=== PATIENT | male | born 1960 | race Caucasian/White ===

== ENCOUNTER 2017-06-14 11:09 | Observation (INO) | payer OTHER ==
[~2017-06-14] VITALS: Ht 177.8 cm; Wt 106.6 kg
[~2017-06-14 11:09] MED LIST: ACET65TA OR; COLA100C2 OR; MOM OR; OMEP20TA7 OR; PAXI20TA OR; TOPR100T OR; VICO5TAB OR
[2017-06-14] MEDS ORDERED: ATOR80TA59 (11:25)
[2017-06-14] MEDS ORDERED: CLOP75TA2 (11:25)
[2017-06-14] MEDS ORDERED: CARV25TA (11:25)
[2017-06-14] MEDS ORDERED: LISI10TA4 (11:25)
[2017-06-14] MEDS ORDERED: BAYE81TA7 (11:25)
--- NOTE | 2017-06-14 11:44 | REP ---
SINGLE VIEW CHEST: AP portable view of the chest is performed. Comparison 08/09/2015. Heart is not significantly enlarged. Mediastinal silhouette is unremarkable and unchanged. There is mild bibasilar fibroatelectatic change without evidence of acute infiltrate. IMPRESSION: No evidence of acute pulmonary disease. Signed by Ganesh June MD 06/14/2017 05:34 P
[2017-06-14] MEDS ORDERED: ACETAMINOPHEN TAB 650MG DOSE (2X325MG) PO ONE (11:45)
[2017-06-14 11:48] LABS: BASO % 0.3 % (0.0-1.0); EOS % 0.6 % (0.0-3.0); IMMATURE GRANULOCYTE % 0.3 % (0-0); LYMPH # 1.6 10^3/uL (1.5-4.5); LYMPH % 22.1 % (24.0-44.0); MEAN CORPUSCULAR HEMOGLOBIN 33.4 pg (27.0-33.0); MEAN CORPUSCULAR HGB CONC 35.2 g/dl (32.0-36.5); MEAN CORPUSCULAR VOLUME 94.8 fl (80.0-96.0); MONO # 0.4 10^3/uL (0.0-0.8); MONO % 5.9 % (0.0-5.0); NEUTROPHILS # 5.1 10^3/uL (1.8-7.7); NEUTROPHILS % 70.8 % (36.0-66.0); PLATELET COUNT, AUTOMATED 227 10^3/uL (150-450); RED CELL DISTRIBUTION WIDTH 13.2 % (11.5-14.5); WHITE BLOOD COUNT 7.2 10^3/uL (4.0-10.0)
[2017-06-14 12:00] LABS: INR 1.04
[2017-06-14 12:12] LABS: ALBUMIN 3.8 GM/DL (3.2-5.2); ALBUMIN/GLOBULIN RATIO 1.15 (1.00-1.93); ALKALINE PHOSPHATASE 70 U/L (45-117); ALT/SGPT 32 U/L (12-78); ANION GAP 7 MEQ/L (8-16); AST/SGOT 18 U/L (15-37); BILIRUBIN,DIRECT 0.2 MG/DL (0.0-0.2); BILIRUBIN,TOTAL 0.8 MG/DL (0.2-1.0); BLOOD UREA NITROGEN 19 MG/DL (7-18); CALCIUM LEVEL 8.7 MG/DL (8.5-10.1); CARBON DIOXIDE LEVEL 25 MEQ/L (21-32); CHLORIDE LEVEL 105 MEQ/L (98-107); CREATININE FOR GFR 0.92 MG/DL (0.70-1.30); GLOMERULAR FILTRATION RATE > 60.0 (>56); GLUCOSE, FASTING 154 MG/DL (70-105); POTASSIUM SERUM 3.9 MEQ/L (3.5-5.1); SODIUM LEVEL 137 MEQ/L (136-145); TOTAL PROTEIN 7.1 GM/DL (6.4-8.2)
[2017-06-14] MEDS ORDERED: NS 500 ML IV ONE (12:30)
[2017-06-14] MEDS ORDERED: PARO40TA2 PO (15:22)
[2017-06-14] MEDS ORDERED: ASPI1TAB15 PO (15:22)
[2017-06-14] MEDS ORDERED: PANT40TA2 PO (15:22)
[2017-06-14] MEDS ORDERED: CARV25TA PO (15:22)
[2017-06-14] MEDS ORDERED: LISI10TA4 PO (15:22)
[2017-06-14] MEDS ORDERED: ATOR80TA59 PO (15:22)
[2017-06-14] MEDS ORDERED: PLAV1TAB2 PO (15:22)
[2017-06-14] MEDS ORDERED: ONDANSETRON 4MG/2ML VIAL (J2405) IV PRN (15:45)
[2017-06-14] MEDS ORDERED: LISINOPRIL 10 MG TAB PO ONE (15:45)
[2017-06-14] MEDS ORDERED: ACETAMINOPHEN TAB 650MG DOSE (2X325MG) PO PRN (15:45)
--- NOTE | 2017-06-14 16:06 | HPEPDOC ---
[facility] Medical History & Physical Date of Admission Jun 14, 2017 History and Physical PRIMARY CARE PROVIDER: Dr. Summers ATTENDING: Dr. Kaia Montenegro CHIEF COMPLAINT: Diaphoresis, near syncope HISTORY OF PRESENT ILLNESS: This is a 56 y/o with PMHx CAD s/p PCI, HTN, HLD, who presents with near syncope. He was also noted to have mild bradycardia from his BB. Denies CP/Palpitations. No N/V/Abd pain. Will be admitted and placed on telemetry with echo pending. PAST MEDICAL HISTORY: As per HPI PAST SURGICAL HISTORY: PCI x 2 SOCIAL HISTORY: Denies tobacco, alcohol, illicit drug use. 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 FAMILY HISTORY: Strong family history heart disease. Mother with CHF, brother of CO age 28. ALLERGIES: Please see below. REVIEW OF SYSTEMS: HEENT: Denies sore throat/headache CARDIOVASCULAR: Denies chest pain/palpitations RESPIRATORY: + shortness of breath. No cough GASTROINTESTINAL: denies nausea/vomiting GENITOURINARY: Denies dysuria/urinary urgency. MUSCULOSKELETAL: Denies myalgias/arthralgias NEUROLOGICAL: Denies any focal weakness HOME MEDICATIONS: Please see below. PHYSICAL EXAMINATION: Vitals: (see below) General: No acute distress, laying comfortably in bed. HEENT: Moist mucous membranes. Neck: No JVD or lymphadenopathy Cardiac: RRR, No murmurs Pulm: Diminished breath sounds at the bases b/l. No wheezing, rhonchi Abd: NT/ND + BS Ext: No edema or cyanosis LABORATORY DATA: See below. IMAGING: MICROBIOLOGY: Please see below. ASSESSMENT/PLAN: 1. Near-syncope- likely vasovagal however will monitor on telemetry. We'll rule out bradycardia/tachycardia/arrhythmia as a cause. Echocardiogram pending. Cardiac enzymes negative 2. Symptoms have resolved. Patient is slightly bradycardic and is on Coreg. Dose of Coreg has been decreased. Dr. Serrato has been called by the ED. 2. History of CAD status post PCI 2 when the patient had an CO in 2014. On aspirin, statin, beta jt, Plavix. 3. Hypertension- continue home meds. Received in dose of Lasix today. 4. Azotemia- likely from dehydration. Started IV fluids. 5. Hyperlipidemia- on statin DVT prophylaxis- SCDs. Pt will be followed by Dr. Kaia He starting 06/15/17 at 7am. Vital Signs Vital Signs Date Time Temp Pulse Resp B/P (MAP) Pulse Ox O2 Delivery O2 Flow Rate FiO2 06/14/17 13:01 48 16 154/68 (96) 91 Room Air 06/14/17 11:22 97.9 Laboratory Data Labs 24H Laboratory Tests 2 06/14/17 11:31: Immature Granulocyte % (Auto) 0.3H, White Blood Count 7.2, Red Blood Count 4.61 , Hemoglobin 15.4, Hematocrit 43.7, Mean Corpuscular Volume 94.8, Mean Corpuscular Hemoglobin 33.4H, Mean Corpuscular Hemoglobin Concent 35.2, Red Cell Distribution Width 13.2, Platelet Count 227, Neutrophils (%) (Auto) 70.8H, Lymphocytes (%) (Auto) 22.1L, Monocytes (%) (Auto) 5.9H, Eosinophils (%) (Auto) 0.6, Basophils (%) (Auto) 0.3, Neutrophils # (Auto) 5.1, Lymphocytes # (Auto) 1.6, Monocytes # (Auto) 0.4, Eosinophils # (Auto) 0.0, Basophils # (Auto) 0.0, Immature Granulocyte # (Auto) 0.0, Nucleated Red Blood Cells % (auto) 0.0, Prothrombin Time 13.7, Prothromb Time International Ratio 1.04, Anion Gap 7L, Glomerular Filtration Rate > 60.0, Calcium Level 8.7, Aspartate Amino Transf ( AST/SGOT) 18, Alanine Aminotransferase (ALT/SGPT) 32, Alkaline Phosphatase 70, Total Bilirubin 0.8, Direct Bilirubin 0.2, Total Creatine Kinase 138, Creatine Kinase MB 3.2, Creatine Kinase MB Relative Index 2.31, Troponin I < 0.02, NT-Pro -B-Type Natriuretic Peptide 441H, Total Protein 7.1, Albumin 3.8, Albumin/ Globulin Ratio 1.15, Lipase 89, Thyroid Stimulating Hormone (TSH) 1.150 06/14/17 13:38: Total Creatine Kinase 124, Creatine Kinase MB 3.2, Creatine Kinase MB Relative Index 2.58, Troponin I < 0.02 06/14/17 14:52: Magnesium Level 2.1 CBC/BMP Laboratory Tests 06/14/17 11:31 Red Blood Count 4.61, Mean Corpuscular Volume 94.8, Mean Corpuscular Hemoglobin 33.4 H, Mean Corpuscular Hemoglobin Concent 35.2, Red Cell Distribution Width 13.2, Neutrophils (%) (Auto) 70.8 H, Lymphocytes (%) (Auto) 22.1 L, Monocytes (% ) (Auto) 5.9 H, Eosinophils (%) (Auto) 0.6, Basophils (%) (Auto) 0.3, Neutrophils # (Auto) 5.1, Lymphocytes # (Auto) 1.6, Monocytes # (Auto) 0.4, Eosinophils # (Auto) 0.0, Basophils # (Auto) 0.0 Home Medications Scheduled Aspirin (Aspirin) 81 Mg Tab, 81 MG PO DAILY Atorvastatin Calcium (Atorvastatin Calcium) 80 Mg Tab, 80 MG PO DAILY Carvedilol (Carvedilol) 12.5 Mg Tab, 12.5 MG PO BID Clopidogrel Bisulfate (Plavix) 75 Mg Tab, 75 MG PO DAILY Lisinopril (Lisinopril) 10 Mg Tab, 10 MG PO DAILY Pantoprazole Sodium (Pantoprazole Sodium) 40 Mg Tab, 40 MG PO DAILY Paroxetine (Paroxetine HCl) 40 Mg Tab, 40 MG PO DAILY Allergies Coded Allergies: Codeine (Verified Adverse Reaction, Mild, NAUSEA, 12/03/12) No Known Allergies (Verified , 04/11/06) HELENA ZUNIGA MD Jun 14, 2017 16:06
[2017-06-14 17:00] VITALS: BP 169/100
[2017-06-14 20:00] VITALS: BP 135/81
[2017-06-14] MEDS: CARVedilol 12.5 MG TAB PO SCH (20:47)
[2017-06-15] VITALS (10 sets, daily range): BP systolic 114–164; BP diastolic 75–87
[2017-06-15 04:53] LABS: MEAN CORPUSCULAR HEMOGLOBIN 32.9 pg (27.0-33.0); MEAN CORPUSCULAR HGB CONC 34.3 g/dl (32.0-36.5); MEAN CORPUSCULAR VOLUME 95.9 fl (80.0-96.0); PLATELET COUNT, AUTOMATED 209 10^3/uL (150-450); RED CELL DISTRIBUTION WIDTH 13.3 % (11.5-14.5); WHITE BLOOD COUNT 5.6 10^3/uL (4.0-10.0)
[2017-06-15 05:34] LABS: ANION GAP 5 MEQ/L (8-16); BLOOD UREA NITROGEN 18 MG/DL (7-18); CARBON DIOXIDE LEVEL 27 MEQ/L (21-32); CHLORIDE LEVEL 109 MEQ/L (98-107); CREATININE FOR GFR 1.03 MG/DL (0.70-1.30); GLOMERULAR FILTRATION RATE > 60.0 (>56); GLUCOSE, FASTING 102 MG/DL (70-105); MAGNESIUM LEVEL 2.1 MG/DL (1.8-2.4); POTASSIUM SERUM 4.5 MEQ/L (3.5-5.1); SODIUM LEVEL 141 MEQ/L (136-145)
--- NOTE | 2017-06-15 06:01 | ECGEPIP ---
Stationary ECG Study [facility] - ED Test Date: 2017-06-14 Pat Name: FELI PUTNAM Department: Room: - Gender: M [employer]: mariana : 1960 Requested By: Charla Venegas Order Number: [id number] Reading MD: Iain Edmondson Measurements Intervals [place] Rate: 51 P: 35 OK: 172 QRS: 23 QRSD: 99 T: 99 QT: 429 QTc: 397 Interpretive Statements SINUS BRADYCARDIA PRIOR ANTEROSEPTAL INFARCTION Electronically Signed On 06-15-2017 6:01:22 EDT by Iain Edmondson
[2017-06-15] MEDS: CLOPIDOGREL 75 MG TAB PO SCH (08:25)
[2017-06-15] MEDS: ATORVASTATIN 20 MG TAB PO SCH (08:25)
[2017-06-15] MEDS: PARoxetine 20 MG TAB PO SCH (08:25)
[2017-06-15] MEDS: PANTOPRAZOLE 40MG TAB (PROTONIX) PO SCH (08:25)
[2017-06-15] MEDS: LISINOPRIL 10 MG TAB PO SCH (08:25)
[2017-06-15] MEDS: CARVedilol 12.5 MG TAB PO SCH ×2 (08:26→20:26)
[2017-06-15] MEDS: ASPIRIN 81 MG ENTERIC TAB PO SCH (08:26)
--- NOTE | 2017-06-15 15:34 | IPN ---
DATE: 06/15/2017 Patient admitted yesterday with near-syncopal episodes and bradyarrhythmia. Denies any chest pain, pressure, or discomfort, fevers, or chills. No further episodes of the hospital. VITAL SIGNS: Temperature 97.8, pulse 58, respirations 17, blood pressure 118/75, pulse oximetry 98% on room air. LABORATORY DATA: WBC 5.6, hemoglobin and hematocrit 15.3/44.6, platelets 209. Chemistry: Sodium 141, potassium 4.5, chloride 109, bicarbonate 27, BUN 18, creatinine 1.03. Cardiac enzymes negative times three. PHYSICAL EXAMINATION: GENERAL: Patient alert and oriented times three in no acute distress. HEENT: Normocephalic, atraumatic. PULMONARY: Bilaterally clear to auscultation. CARDIAC: Regular rate and rhythm. Normal S1, S2. ABDOMEN: Soft and nontender. Positive bowel sounds. EXTREMITIES: No clubbing, cyanosis, or edema. NEUROLOGIC: No focal deficits. ASSESSMENT AND PLAN: This is a 56-year-old male patient with underlying medical history of coronary artery disease with percutaneous coronary intervention (PCI) times two, hypertension, dyslipidemia, presented with a near-syncopal episode with diaphoresis. Was found to be mildly bradycardic. 1. Near-syncopal episode, likely vasovagal. Mild bradycardic on EKGs. Patient's Coreg has been reduced. Cardiac enzymes negative times three. Cardiology team has been informed. Will monitor the patient on telemetry for 2 nights prior to discharge. 2. History of coronary artery disease with PCI times two. Cardiac enzymes negative times three. Continue beta blockers at reduced dose, aspirin, statin, Plavix. Last myocardial infarction (CO) 2014. 3. Hypertension. Continue home medication. Dosage of beta jt has been reduced. Continue Coreg, lisinopril. 4. Depression. Continue Paxil. 5. Azotemia. Intravenous (IV) fluids have been given. 6. Dyslipidemia. Continue statin. 7. Deep vein thrombosis (DVT) prophylaxis. Sequential compression devices and early ambulation.
--- NOTE | 2017-06-15 22:21 | IPNPDOC ---
Text Note Date of Service The patient was seen on 06/15/17. NOTE Evening resident and attending were notified that patient was orthostatic positive. Chart was reviewed. 500 cc NS bolus ordered for patient. Continue to monitor BP closely. Will repeat orthostatics after bolus given. Patient has been discussed with attending Dr. Collier. GME ATTESTATION My preceptor for this patient encounter was physically present in the building during the encounter and was fully available. As needed, all aspects of the patient interview, examination, medical decision making process, and medical care plan development were reviewed and approved by the preceptor. Preceptor is aware and concurs with the plan as stated in the body of this note and will attest to such by his/her cosignature. VS,Fishbone, I+O VS, Fishbone, I+O Laboratory Tests 06/15/17 04:31 Red Blood Count 4.65, Mean Corpuscular Volume 95.9, Mean Corpuscular Hemoglobin 32.9, Mean Corpuscular Hemoglobin Concent 34.3, Red Cell Distribution Width 13.3 , Calcium Level 9.0 Vital Signs Date Time Temp Pulse Resp B/P (MAP) Pulse Ox O2 Delivery O2 Flow Rate FiO2 06/15/17 20:26 53 121/70 06/15/17 18:00 98.5 18 98 Room Air I&O- Last 24 Hours up to 6 AM 06/16/17 06:00 Intake Total 0 ml Output Total 150 ml Balance -150 ml GILBERTO KRISHNAMURTHY DO Jun 15, 2017 22:21
[2017-06-15] MEDS ORDERED: SODIUM CHLORIDE 0.9% 1000 ML IV ONE (22:30)
[2017-06-16 01:00] VITALS: BP_SYST 134; BP_SYST 137; BP_SYST 145; BP_DIAS 87; BP_DIAS 92; BP_DIAS 97
[2017-06-16 02:00] VITALS: BP 137/92
[2017-06-16 06:00] VITALS: BP 137/92
[2017-06-16 06:06] LABS: MEAN CORPUSCULAR HEMOGLOBIN 33.4 pg (27.0-33.0); MEAN CORPUSCULAR HGB CONC 35.3 g/dl (32.0-36.5); MEAN CORPUSCULAR VOLUME 94.6 fl (80.0-96.0); PLATELET COUNT, AUTOMATED 188 10^3/uL (150-450); RED CELL DISTRIBUTION WIDTH 13.2 % (11.5-14.5)
[2017-06-16 06:29] LABS: ANION GAP 7 MEQ/L (8-16); BLOOD UREA NITROGEN 21 MG/DL (7-18); CALCIUM LEVEL 8.6 MG/DL (8.5-10.1); CARBON DIOXIDE LEVEL 26 MEQ/L (21-32); CHLORIDE LEVEL 108 MEQ/L (98-107); CREATININE FOR GFR 0.83 MG/DL (0.70-1.30); GLOMERULAR FILTRATION RATE > 60.0 (>56); GLUCOSE, FASTING 103 MG/DL (70-105); MAGNESIUM LEVEL 1.9 MG/DL (1.8-2.4); SODIUM LEVEL 141 MEQ/L (136-145)
[2017-06-16] MEDS ORDERED: CARV12.5 PO (08:41)
[2017-06-16] MEDS: PARoxetine 20 MG TAB PO SCH (09:14)
[2017-06-16] MEDS: CLOPIDOGREL 75 MG TAB PO SCH (09:14)
[2017-06-16] MEDS: PANTOPRAZOLE 40MG TAB (PROTONIX) PO SCH (09:14)
[2017-06-16] MEDS: ASPIRIN 81 MG ENTERIC TAB PO SCH (09:14)
[2017-06-16] MEDS: ATORVASTATIN 20 MG TAB PO SCH (09:14)
[2017-06-16 09:15] VITALS: BP 149/83
[2017-06-16] MEDS: CARVedilol 12.5 MG TAB PO SCH (09:15)
[2017-06-16] MEDS: LISINOPRIL 10 MG TAB PO SCH (09:15)
[2017-06-16 10:00] VITALS: BP 143/84
[2017-06-16 14:00] VITALS: BP 139/83
--- NOTE | 2017-06-16 17:37 | DSES ---
DATE OF ADMISSION: 06/14/2017 DATE OF DISCHARGE: 06/16/2017 PRIMARY CARE PROVIDER: Dr. Summers GRADUATE TEACHING ASSISTANT: Dr. Knight and Dr. Serrato FINAL DIAGNOSES: 1. Near-syncope episode with vasovagal and bradyarrhythmia. 2. History of coronary artery disease. 3. Hypertension. 4. Depression. 5. Azotemia. 6. Dyslipidemia. HISTORY OF PRESENT ILLNESS: This is a 56-year-old male patient with underlying medical history of coronary artery disease with stent times two, hypertension, dyslipidemia. Works at [employer]. Had an episode where patient felt diaphoretic, almost passed out, and was brought to the emergency room. In the emergency room patient was found to be bradycardic down to 46 and 48. Subsequently request was then made for the patient to be admitted. HOSPITAL COURSE: Cardiac enzymes were done. Intravenous (IV) fluids were given to the patient for prerenal azotemia. Orthostatic vital signs were done. Initially mildly positive. After IV fluids, patient's orthostatics became negative. The patient's beta jt has been reduced. Case was discussed with cardiology, patient's beta jt reduced, and patient's heart rate subsequently much improved. Patient currently is comfortable in no acute distress. Passed home safety evaluation. Ready for discharge for further care of outpatient. Telemetry has been reviewed. PHYSICAL EXAMINATION: VITAL SIGNS: Temperature 98.3, pulse 60, respirations 18, blood pressure 143/84, pulse oximetry 93% on room air. GENERAL: Patient alert and oriented times three in no acute distress HEENT: Normocephalic, atraumatic. PULMONARY: Bilaterally clear to auscultation. CARDIAC: Regular rate and rhythm. Normal S1, S2. ABDOMEN: Soft, nontender. Positive bowel sounds. EXTREMITIES: No clubbing, cyanosis, or edema. LABORATORY DATA: WBC 5, hemoglobin and hematocrit 14.9/42.2, platelets 188. Chemistry: Sodium 141, potassium 4, chloride 108, bicarbonate 26, BUN 21, creatinine 0.8. Cardiac enzymes negative times three. DISCHARGE MEDICATIONS: - Coreg is reduced to 12.5 mg by mouth twice a day - aspirin 81 mg by mouth daily - Lipitor 80 mg by mouth daily - Plavix 75 mg by mouth daily - lisinopril 10 mg by mouth daily - Protonix 40 mg by mouth daily - Paxil 40 mg by mouth daily DISCHARGE INSTRUCTIONS: Patient is instructed to followup with cardiology next week. Patient already has an appointment. Followup with primary care provider in 7 days. Monitor blood pressure as outpatient. Oral hydration. Return to hospital if symptoms return.
--- NOTE | 2017-06-17 09:17 | ECHO ---
DATE OF PROCEDURE: 06/16/2017 REFERRING PHYSICIAN: Dr. Montenegro and Dr. Faraz Talley. The study was performed on 06/16/2017 for indication of syncope, shortness of breath and chest pain. Patient has a history of myocardial infarction. The patient measures 70 inches and weighs 234 pounds. DIMENSIONS: IVS: 1.3 LV: 6.3 LVPW: 1.3 LA: 4.7 Aorta: 3.4 Ascending aorta: 3.7 RV: 3.3 LV systolic: 3.6 IVC: 1.8 FINDINGS: The study is of fair technical quality. Left ventricle is mildly dilated. There is wall motion abnormality involving distal septum and apex. These segments are essentially akinetic. Remaining LV segments appear to have normal contractility. Overall left ventricular ejection fraction (LVEF) is estimated around 50-55%. The right ventricle appears normal. Left atrium is at least moderately enlarged. Right atrium is normal. Aortic, mitral and tricuspid valve appear normal. Pulmonic valve was relatively poorly visualized but also appears normal. No pericardial effusion is noted. Inferior vena cava is normal size. Aortic root is normal size. Aortic arch and abdominal aorta were not well seen. Doppler interrogation of aortic and mitral valve reveal no stenosis or insufficiency. There is trace tricuspid insufficiency, but unfortunately quality of TR jet was not sufficient to adequately estimate pulmonary artery pressure. No pulmonic insufficiency was seen. Mitral inflow pattern and tissue Doppler imaging of mitral annulus reveal grade 1 diastolic dysfunction. CONCLUSION: 1. Study is of fair technical quality. 2. Dilated left ventricle with mild left ventricular hypertrophy. Septal wall motion abnormality involving distal septum and apex and overall ejection fraction estimated around 50-55%. 3. Normal right ventricle. 4. Grade 1 diastolic dysfunction. 5. No significant valvular disease. 6. Normal central venous pressure. 7. Unable to estimate pulmonary artery pressure but no signs to suggest pulmonary hypertension. COMMENT: Subacute bacterial endocarditis (SBE) prophylaxis is not recommended. The study is consistent with hypertensive and ischemic heart disease.
== END 2017-06-16 14:50 | disposition home or self-care (01) ==
LOC: M ED 11:09 → EDBD 11:09 → M ED INP 15:37 → M ICU 16:56 → M MSPAV 06-15 15:13
PROVIDERS: ADMIT Internal Medicine; ATTEND Hospitalist
DX: R55 Syncope and collapse (principal); R00.1 Bradycardia, unspecified; I25.10 Atherosclerotic heart disease of native coronary artery without angina pectoris; I10 Essential (primary) hypertension; Z79.899 Other long term (current) drug therapy; F32.9 Major depressive disorder, single episode, unspecified; N19 Unspecified kidney failure; E78.5 Hyperlipidemia, unspecified; Z98.61 Coronary angioplasty status; Z79.02 Long term (current) use of antithrombotics/antiplatelets

== ENCOUNTER 2017-11-16 13:53 | Emergency (ER) | payer OTHER ==
[2017-11-16] MEDS ORDERED: ISOVUE-370 76% 100ML VIAL (Q9967) As Ordered (16:02)
[2017-11-16] MEDS: METHOCARBAMOL 500 MG TAB PO (16:45)
== END 2017-11-16 17:16 | disposition home or self-care (01) ==
LOC: M ED 13:53
DX: S39.92XA Unspecified injury of lower back, initial encounter (principal); W18.30XA Fall on same level, unspecified, initial encounter; Y92.59 Other trade areas as the place of occurrence of the external cause; Y93.89 Activity, other specified; Y99.0 Civilian activity done for income or pay; I25.10 Atherosclerotic heart disease of native coronary artery without angina pectoris; I10 Essential (primary) hypertension; E78.5 Hyperlipidemia, unspecified; K21.9 Gastro-esophageal reflux disease without esophagitis; Z79.899 Other long term (current) drug therapy; Z79.01 Long term (current) use of anticoagulants; Z79.82 Long term (current) use of aspirin; Z88.5 Allergy status to narcotic agent; Z95.5 Presence of coronary angioplasty implant and graft
CPT/HCPCS: Q9967

== ENCOUNTER → 2017-12-06 | Outpatient (CLI) | payer OTHER ==
[2017-12-06 13:26] LABS: BASO % 0.5 % (0.0-1.0); EOS # 0.1 10^3/uL (0.0-0.50); EOS % 1.8 % (0.0-3.0); HEMATOCRIT 44.7 % (42.0-52.0); HEMOGLOBIN 15.6 g/dl (13.5-17.5); IMMATURE GRANULOCYTE % 0.5 % (0-3.0); LYMPH # 2.1 10^3/uL (1.5-4.5); LYMPH % 34.2 % (24.0-44.0); MEAN CORPUSCULAR HEMOGLOBIN 33.1 pg (27.0-33.0); MEAN CORPUSCULAR HGB CONC 34.9 g/dl (32.0-36.5); MEAN CORPUSCULAR VOLUME 94.9 fl (80.0-96.0); MONO # 0.5 10^3/uL (0.0-0.8); MONO % 7.7 % (0.0-5.0); NEUTROPHILS # 3.4 10^3/uL (1.8-7.7); NEUTROPHILS % 55.3 % (36.0-66.0); PLATELET COUNT, AUTOMATED 237 10^3/uL (150-450); RED BLOOD COUNT 4.71 10^6/uL (4.30-6.10); RED CELL DISTRIBUTION WIDTH 13.4 % (11.5-14.5); WHITE BLOOD COUNT 6.2 10^3/uL (4.0-10.0)
[2017-12-06 13:58] LABS: ANION GAP 6 MEQ/L (8-16); BLOOD UREA NITROGEN 21 MG/DL (7-18); CALCIUM LEVEL 8.7 MG/DL (8.5-10.1); CARBON DIOXIDE LEVEL 30 MEQ/L (21-32); CHLORIDE LEVEL 106 MEQ/L (98-107); CREATININE FOR GFR 0.94 MG/DL (0.70-1.30); GLOMERULAR FILTRATION RATE > 60.0 (>56); GLUCOSE, FASTING 116 MG/DL (70-100); POTASSIUM SERUM 5.1 MEQ/L (3.5-5.1); SODIUM LEVEL 142 MEQ/L (136-145)
== END ==
LOC: M SMT 11:35
DX: I10 Essential (primary) hypertension (principal)
CPT/HCPCS: 80048

== ENCOUNTER → 2019-07-02 | Outpatient (REF) | payer OTHER ==
[~2019-07-02] MED LIST changes: +ASPI1TAB15 PO; +ATOR80TA59; +ATOR80TA59 PO; +BAYE81TA7; +CARV12.5 PO; +CARV25TA; +CARV25TA PO; +CLOP75TA2; +LISI10TA4; +LISI10TA4 PO; +METO-745 OR; +PANT40TA3 PO; +PARO40TA2 PO; +PLAV1TAB2 PO; +ROBA500T PO; -TOPR100T OR
[2019-07-02 12:06] LABS: BASO % 0.4 % (0.0-1.0); EOS # 0.1 10^3/uL (0.0-0.5); EOS % 2.5 % (0.0-3.0); HEMATOCRIT 44.6 % (42.0-52.0); LYMPH # 2.1 10^3/uL (1.5-5.0); LYMPH % 37.5 % (24.0-44.0); MEAN CORPUSCULAR HEMOGLOBIN 33.2 pg (27.0-33.0); MEAN CORPUSCULAR HGB CONC 33.6 g/dl (32.0-36.5); MEAN CORPUSCULAR VOLUME 98.7 fl (80.0-96.0); MONO # 0.4 10^3/uL (0.0-0.8); MONO % 7.7 % (0.0-5.0); NEUTROPHILS # 2.9 10^3/uL (1.5-8.5); NEUTROPHILS % 51.5 % (36.0-66.0); PLATELET COUNT, AUTOMATED 206 10^3/uL (150-450); RED BLOOD COUNT 4.52 10^6/uL (4.30-6.10); WHITE BLOOD COUNT 5.6 10^3/uL (4.0-10.0)
[2019-07-02 12:34] LABS: ALBUMIN 3.7 GM/DL (3.2-5.2); ALT/SGPT 28 U/L (12-78); BILIRUBIN,TOTAL 0.4 MG/DL (0.2-1.0); BLOOD UREA NITROGEN 16 MG/DL (7-18); CALCIUM LEVEL 8.7 MG/DL (8.8-10.2); CARBON DIOXIDE LEVEL 30 MEQ/L (21-32); CHLORIDE LEVEL 106 MEQ/L (98-107); CHOLESTEROL LEVEL 153 MG/DL (<200); CHOLESTEROL RISK RATIO 4.135 (<5); CK-MB VALUE MASS 3.6 NG/ML (<3.6); CPK CREATINE PHOSPHOKINASE 157 U/L (39-308); CREATININE FOR GFR 0.85 MG/DL (0.70-1.30); FREE T4 0.98 NG/DL (0.76-1.46); GLOMERULAR FILTRATION RATE > 60.0 (>49); GLUCOSE, FASTING 234 MG/DL (70-100); HDL CHOLESTEROL 37 MG/DL (>40); LDL CHOLESTEROL 96 MG/DL (<100); MB/CK RELATIVE INDEX 2.29 (< OR =4); NON-HDL-C 116 MG/DL; POTASSIUM SERUM 4.1 MEQ/L (3.5-5.1); SODIUM LEVEL 141 MEQ/L (136-145); TOTAL PROTEIN 7.4 GM/DL (6.4-8.2); TRIGLYCERIDES LEVEL 102 MG/DL (<150); TROPONIN I < 0.02 NG/ML (< 0.10)
[2019-07-02 12:35] LABS: HEMOGLOBIN A1c 8.4 %
== END ==
LOC: M SFHCPLAZ 10:18
PROVIDERS: ATTEND Physician Assistant Medical
DX: Z12.5 Encounter for screening for malignant neoplasm of prostate (principal); E66.9 Obesity, unspecified; E78.5 Hyperlipidemia, unspecified; F41.1 Generalized anxiety disorder; I10 Essential (primary) hypertension; I25.119 Atherosclerotic heart disease of native coronary artery with unspecified angina pectoris
CPT/HCPCS: 36415; 80053; 80061; 82550; 82553; 83036; 84439; 84443; 84484; 85025; G0103

== ENCOUNTER → 2019-08-13 | Outpatient (REF) | payer OTHER ==
[2019-08-13 12:38] LABS: HEMOGLOBIN A1c 8.1 %
== END ==
LOC: M SFHCPLAZ 09:44
PROVIDERS: ATTEND Physician Assistant Medical
DX: E11.9 Type 2 diabetes mellitus without complications (principal)

== ENCOUNTER → 2020-01-28 | Outpatient (CLI) | payer OTHER ==
--- NOTE | 2020-01-28 15:14 | REPPI ---
REASON: Atraumatic pain. There are mild degenerative changes. There is no acute fracture. Electronically Signed by Mir Palencia DO 01/28/2020 03:23 P
--- NOTE | 2020-01-28 15:14 | REPPI ---
REASON: Arthritis. There are mild degenerative changes. There is no acute fracture. Electronically Signed by Mir Palencia DO 01/28/2020 03:23 P
== END ==
LOC: M PLAIMG 10:24
PROVIDERS: ATTEND Physician Assistant Medical
DX: M25.532 Pain in left wrist (principal)

== ENCOUNTER → 2020-01-28 | Outpatient (REF) | payer OTHER ==
[2020-01-28 12:56] LABS: BASO % 0.5 % (0.0-1.0); EOS # 0.1 10^3/uL (0.0-0.5); EOS % 1.6 % (0.0-3.0); HEMATOCRIT 43.2 % (42.0-52.0); HEMOGLOBIN 15.1 g/dl (13.5-17.5); LYMPH % 35.1 % (24.0-44.0); MEAN CORPUSCULAR HEMOGLOBIN 33.6 pg (27.0-33.0); MONO # 0.4 10^3/uL (0.0-0.8); MONO % 7.3 % (0.0-5.0); NEUTROPHILS # 3.1 10^3/uL (1.5-8.5); PLATELET COUNT, AUTOMATED 200 10^3/uL (150-450); WHITE BLOOD COUNT 5.6 10^3/uL (4.0-10.0)
[2020-01-28 13:10] LABS: ALBUMIN 3.8 GM/DL (3.2-5.2); ALT/SGPT 37 U/L (12-78); BILIRUBIN,TOTAL 0.5 MG/DL (0.2-1.0); BLOOD UREA NITROGEN 21 MG/DL (7-18); CALCIUM LEVEL 8.6 MG/DL (8.8-10.2); CARBON DIOXIDE LEVEL 30 MEQ/L (21-32); CHLORIDE LEVEL 106 MEQ/L (98-107); CHOLESTEROL LEVEL 159 MG/DL (<200); CHOLESTEROL RISK RATIO 3.975 (<5); CREATININE FOR GFR 0.92 MG/DL (0.70-1.30); FREE T4 1.01 NG/DL (0.76-1.46); GLOMERULAR FILTRATION RATE > 60.0 (>49); GLUCOSE, FASTING 143 MG/DL (70-100); HDL CHOLESTEROL 40 MG/DL (>40); LDL CHOLESTEROL 93 MG/DL (<100); NON-HDL-C 119 MG/DL; POTASSIUM SERUM 4.6 MEQ/L (3.5-5.1); SODIUM LEVEL 139 MEQ/L (136-145); THYROID STIMULATING HORMONE 0.969 uIU/ML (0.358-3.740); TRIGLYCERIDES LEVEL 130 MG/DL (<150)
[2020-01-28 14:11] LABS: HEMOGLOBIN A1c 7.5 %
== END ==
LOC: M SFHCPLAZ 10:24
PROVIDERS: ATTEND Physician Assistant Medical
DX: E78.5 Hyperlipidemia, unspecified (principal); E11.9 Type 2 diabetes mellitus without complications; F41.1 Generalized anxiety disorder; I10 Essential (primary) hypertension

== ENCOUNTER → 2020-04-30 | Outpatient (CLI) | payer OTHER ==
[~2020-04-30] MED LIST changes: +ASPI-546 PO; -ASPI1TAB15 PO; +ISOS30TA4 PO; +METF500T13 PO; +PANT40TA29 PO; -PANT40TA3 PO
== END ==
LOC: M LABSMTC 11:00
PROVIDERS: ATTEND Anesthesiology
DX: Z11.59 Encounter for screening for other viral diseases (principal)
CPT/HCPCS: C9803; U0003

== ENCOUNTER 2020-05-05 08:00 | Day surgery (SDC) | payer OTHER ==
[~2020-05-05] VITALS: Ht 177.8 cm; Wt 101.2 kg
[~2020-05-05 08:00] MED LIST changes: +LIDOCAINE 2% 100MG/5ML SDV (FOR ANES.) As Ordered ONE; +NS 1,000 ML IV ONE; +propofoL 200 MG/20 ML VIAL As Ordered ONE
[2020-05-05 09:24] VITALS: BP 166/88
--- NOTE | 2020-05-05 11:39 | ROOR ---
Patient Name: Omid Schmidt Procedure Date: 05/05/2020 8:35 AM Date of : 1960 Age: 59 Room: [facility] Gender: Male Note Status: Finalized Procedure: Total Colonoscopy to Cecum Indications: Screening for colorectal malignant neoplasm Providers: Devaughn Soria MD Referring MD: Cait VELIZ Requesting Provider: Medicines: Monitored Anesthesia Care Complications: No immediate complications. Procedure: Pre-Anesthesia Assessment: - The heart rate, respiratory rate, oxygen saturations, blood pressure, adequacy of pulmonary ventilation, and response to care were monitored throughout the procedure. The Colonoscope was introduced through the anus and advanced to the cecum, identified by appendiceal orifice and ileocecal valve. The colonoscopy was performed without difficulty. The patient tolerated the procedure well. The quality of the bowel preparation was excellent. Findings: The perianal and digital rectal examinations were normal. Non-bleeding internal hemorrhoids were found during retroflexion. The hemorrhoids were small and Grade I (internal hemorrhoids that do not prolapse). Scattered small-mouthed diverticula were found in the recto-sigmoid colon, sigmoid colon and descending colon. The exam was otherwise without abnormality on direct and retroflexion views. Impression: - Non-bleeding internal hemorrhoids. - Diverticulosis in the recto-sigmoid colon, in the sigmoid colon and in the descending colon. - The examination was otherwise normal on direct and retroflexion views. - No specimens collected. - The exam was otherwise normal to the cecum. Recommendation: - Patient has a contact number available for emergencies. The signs and symptoms of potential delayed complications were discussed with the patient. Return to normal activities tomorrow. Written discharge instructions were provided to the patient. - High fiber diet. - Discharge patient to home. - Continue present medications. - Repeat colonoscopy in 10 years for screening purposes. - Return to referring physician. - The findings and recommendations were discussed with the patient. Devaughn Soria MD Devaughn Soria MD 05/05/2020 8:58:23 AM Electronically signed by Devaughn Soria MD Number of Addenda: 0 Note Initiated On: 05/05/2020 8:35 AM Estimated Blood Loss: Estimated blood loss: none.
== END 2020-05-05 09:29 | disposition home or self-care (01) ==
LOC: M OPP 08:00
PROVIDERS: ATTEND Internal Medicine Gastroenterology
DX: Z12.11 Encounter for screening for malignant neoplasm of colon (principal); K57.30 Diverticulosis of large intestine without perforation or abscess without bleeding; K64.0 First degree hemorrhoids; K21.9 Gastro-esophageal reflux disease without esophagitis; E11.9 Type 2 diabetes mellitus without complications; I10 Essential (primary) hypertension; I25.2 Old myocardial infarction; Z79.01 Long term (current) use of anticoagulants; Z79.82 Long term (current) use of aspirin; Z79.899 Other long term (current) drug therapy; Z95.5 Presence of coronary angioplasty implant and graft

== ENCOUNTER → 2020-10-25 | Outpatient (REF) | payer OTHER ==
[~2020-10-25] MED LIST changes: +ISOS1TAB35 PO; -ISOS30TA4 PO; -LIDOCAINE 2% 100MG/5ML SDV (FOR ANES.) As Ordered ONE; +LISI10TA22; +LISI10TA22 PO; -LISI10TA4; -LISI10TA4 PO; -NS 1,000 ML IV ONE; -propofoL 200 MG/20 ML VIAL As Ordered ONE
[2020-10-25 14:11] LABS: BASO % 0.6 % (0.0-1.0); EOS # 0.1 10^3/uL (0.0-0.5); EOS % 1.5 % (0.0-3.0); HEMATOCRIT 46.4 % (42.0-52.0); HEMOGLOBIN 15.8 g/dl (13.5-17.5); LYMPH # 1.8 10^3/uL (1.5-5.0); MEAN CORPUSCULAR HEMOGLOBIN 32.6 pg (27.0-33.0); MEAN CORPUSCULAR HGB CONC 34.1 g/dl (32.0-36.5); MEAN CORPUSCULAR VOLUME 95.7 fl (80.0-96.0); MONO # 0.3 10^3/uL (0.0-0.8); MONO % 6.4 % (2.0-8.0); NEUTROPHILS % 56.7 % (36.0-66.0); PLATELET COUNT, AUTOMATED 225 10^3/uL (150-450); RED BLOOD COUNT 4.85 10^6/uL (4.30-6.10); WHITE BLOOD COUNT 5.3 10^3/uL (4.0-10.0)
[2020-10-25 14:47] LABS: CREATININE, URINE 31.2 MG/DL; MALB URINE SIEMENS < 5.0 MG/L
[2020-10-25 15:18] LABS: ALBUMIN 3.7 GM/DL (3.2-5.2); ALT/SGPT 46 U/L (12-78); BILIRUBIN,TOTAL 0.6 MG/DL (0.2-1.0); BLOOD UREA NITROGEN 23 MG/DL (7-18); CALCIUM LEVEL 9.1 MG/DL (8.8-10.2); CARBON DIOXIDE LEVEL 27 MEQ/L (21-32); CHLORIDE LEVEL 100 MEQ/L (98-107); CHOLESTEROL LEVEL 129 MG/DL (<200); CHOLESTEROL RISK RATIO 3.486 (<5); CREATININE FOR GFR 0.93 MG/DL (0.70-1.30); FREE T4 1.18 NG/DL (0.76-1.46); GLOMERULAR FILTRATION RATE > 60.0 (>49); GLUCOSE, FASTING 439 MG/DL (70-100); HDL CHOLESTEROL 37 MG/DL (>40); LDL CHOLESTEROL 62 MG/DL (<100); NON-HDL-C 92 MG/DL; POTASSIUM SERUM 5.5 MEQ/L (3.5-5.1); SODIUM LEVEL 135 MEQ/L (136-145); THYROID STIMULATING HORMONE 0.628 uIU/ML (0.358-3.740); TOTAL PROTEIN 6.7 GM/DL (6.4-8.2); TRIGLYCERIDES LEVEL 150 MG/DL (<150)
[2020-10-25 17:25] LABS: HEMOGLOBIN A1c > 14.0 %
== END ==
LOC: M SFHCPLAZ 11:46
PROVIDERS: ATTEND Physician Assistant Medical
DX: I10 Essential (primary) hypertension (principal); E11.9 Type 2 diabetes mellitus without complications; E78.5 Hyperlipidemia, unspecified; F41.1 Generalized anxiety disorder; Z12.5 Encounter for screening for malignant neoplasm of prostate

== ENCOUNTER → 2021-02-16 | Outpatient (REF) | payer OTHER ==
[2021-02-16 11:41] LABS: HEMOGLOBIN A1c 6.9 %
[2021-02-16 11:48] LABS: ALBUMIN 3.6 GM/DL (3.2-5.2); ALT/SGPT 21 U/L (12-78); BILIRUBIN,TOTAL 0.4 MG/DL (0.2-1.0); BLOOD UREA NITROGEN 20 MG/DL (7-18); CALCIUM LEVEL 8.3 MG/DL (8.8-10.2); CARBON DIOXIDE LEVEL 31 MEQ/L (21-32); CHLORIDE LEVEL 108 MEQ/L (98-107); CHOLESTEROL LEVEL 141 MG/DL (<200); CHOLESTEROL RISK RATIO 3.204 (<5); CREATININE FOR GFR 0.83 MG/DL (0.70-1.30); GLOMERULAR FILTRATION RATE > 60.0 (>49); GLUCOSE, FASTING 114 MG/DL (70-100); HDL CHOLESTEROL 44 MG/DL (>40); LDL CHOLESTEROL 81 MG/DL (<100); NON-HDL-C 97 MG/DL; POTASSIUM SERUM 4.7 MEQ/L (3.5-5.1); SODIUM LEVEL 141 MEQ/L (136-145); TOTAL PROTEIN 6.4 GM/DL (6.4-8.2); TRIGLYCERIDES LEVEL 78 MG/DL (<150)
== END ==
LOC: M PLALAB 07:55
PROVIDERS: ATTEND Physician Assistant Medical
DX: E78.5 Hyperlipidemia, unspecified (principal); E11.9 Type 2 diabetes mellitus without complications; Z12.5 Encounter for screening for malignant neoplasm of prostate
CPT/HCPCS: 36415; 80053; 80061; 83036; G0103

== ENCOUNTER → 2021-05-09 | Outpatient (REF) | payer OTHER ==
[2021-05-09 12:45] LABS: BASO % 0.3 % (0.0-1.0); EOS # 0.1 10^3/uL (0.0-0.5); EOS % 1.2 % (0.0-3.0); HEMATOCRIT 43.6 % (42.0-52.0); LYMPH # 2.5 10^3/uL (1.5-5.0); LYMPH % 41.4 % (24.0-44.0); MEAN CORPUSCULAR HEMOGLOBIN 33.9 pg (27.0-33.0); MEAN CORPUSCULAR HGB CONC 34.4 g/dl (32.0-36.5); MEAN CORPUSCULAR VOLUME 98.4 fl (80.0-96.0); MONO # 0.4 10^3/uL (0.0-0.8); NEUTROPHILS # 2.9 10^3/uL (1.5-8.5); NEUTROPHILS % 49.4 % (36.0-66.0); PLATELET COUNT, AUTOMATED 207 10^3/uL (150-450); RED BLOOD COUNT 4.43 10^6/uL (4.30-6.10)
[2021-05-09 14:41] LABS: C REACTIVE PROTEIN QUANTITATIV < 0.30 MG/DL (0.00-0.30); RHEUMATOID FACTOR QUANT < 10.0 IU/ML (<15.0)
[2021-05-09 16:41] LABS: ERYTHROCYTE SEDIMENTATION RATE 4 mm/hr (0-20)
[2021-05-10 16:17] LABS: Lyme Disease IgG/IgM Antibodie <0.91 ISR (0.00-0.90); Lyme Disease IgM Ab Quantitati <0.80 index (0.00-0.79)
== END ==
LOC: M LABDRWAD 12:19
PROVIDERS: ATTEND Physician Assistant
DX: M19.032 Primary osteoarthritis, left wrist (principal)

== ENCOUNTER → 2021-06-23 | Outpatient (CLI) | payer OTHER ==
[2021-06-23 15:59] LABS: CK-MB VALUE MASS 2.5 NG/ML (<3.6); CPK CREATINE PHOSPHOKINASE 90 U/L (39-308); MB/CK RELATIVE INDEX 2.78 (< OR =4); TROPONIN I < 0.02 NG/ML (< 0.10)
== END ==
LOC: M PLALAB 11:19
PROVIDERS: ATTEND Physician Assistant Medical
DX: I25.119 Atherosclerotic heart disease of native coronary artery with unspecified angina pectoris (principal)

== ENCOUNTER → 2021-09-05 | Outpatient (REF) | payer OTHER ==
[2021-09-05 12:29] LABS: BASO % 0.3 % (0.0-1.0); EOS # 0.1 10^3/uL (0.0-0.5); EOS % 1.4 % (0.0-3.0); HEMATOCRIT 41.5 % (42.0-52.0); LYMPH # 2.1 10^3/uL (1.5-5.0); LYMPH % 31.3 % (24.0-44.0); MEAN CORPUSCULAR HEMOGLOBIN 32.9 pg (27.0-33.0); MEAN CORPUSCULAR HGB CONC 33.7 g/dl (32.0-36.5); MEAN CORPUSCULAR VOLUME 97.6 fl (80.0-96.0); MONO # 0.4 10^3/uL (0.0-0.8); MONO % 6.5 % (2.0-8.0); PLATELET COUNT, AUTOMATED 235 10^3/uL (150-450); RED BLOOD COUNT 4.25 10^6/uL (4.30-6.10); WHITE BLOOD COUNT 6.7 10^3/uL (4.0-10.0)
[2021-09-05 12:39] LABS: INR 0.97; PROTHROMBIN TIME 13.3 SECONDS (12.7-14.5)
[2021-09-05 12:40] LABS: PARTIAL THROMBOPLASTIN TIME 32.9 SECONDS (25.9-37.0)
[2021-09-05 12:56] LABS: HEMOGLOBIN A1c 7.6 %
[2021-09-05 12:58] LABS: ALBUMIN 3.5 GM/DL (3.2-5.2); ALT/SGPT 27 U/L (12-78); BILIRUBIN,TOTAL 0.2 MG/DL (0.2-1.0); BLOOD UREA NITROGEN 22 MG/DL (7-18); CALCIUM LEVEL 8.4 MG/DL (8.8-10.2); CARBON DIOXIDE LEVEL 25 MEQ/L (21-32); CHLORIDE LEVEL 108 MEQ/L (98-107); CREATININE FOR GFR 0.91 MG/DL (0.70-1.30); GLOMERULAR FILTRATION RATE > 60.0 (>49); GLUCOSE, FASTING 200 MG/DL (70-100); NT-PRO BNP 69 PG/ML (<125); POTASSIUM SERUM 4.7 MEQ/L (3.5-5.1); SODIUM LEVEL 138 MEQ/L (136-145); TOTAL PROTEIN 6.4 GM/DL (6.4-8.2)
== END ==
LOC: M LABDRWAD 11:15
PROVIDERS: ATTEND Family Medicine
DX: I10 Essential (primary) hypertension (principal); E11.9 Type 2 diabetes mellitus without complications

== ENCOUNTER → 2022-08-23 | Outpatient (CLI) | payer OTHER ==
[~2022-08-23] MED LIST changes: +CLOP75TA99 PO; -PLAV1TAB2 PO
[2022-08-23 11:11] LABS: BASO % 0.6 % (0.0-1.0); EOS # 0.1 10^3/uL (0.0-0.5); EOS % 0.9 % (0.0-3.0); HEMATOCRIT 45.4 % (42.0-52.0); HEMOGLOBIN 15.6 g/dl (13.5-17.5); LYMPH # 2.3 10^3/uL (1.5-5.0); LYMPH % 35.2 % (24.0-44.0); MEAN CORPUSCULAR HEMOGLOBIN 33.1 pg (27.0-33.0); MEAN CORPUSCULAR HGB CONC 34.4 g/dl (32.0-36.5); MEAN CORPUSCULAR VOLUME 96.4 fl (80.0-96.0); MONO # 0.4 10^3/uL (0.0-0.8); MONO % 6.8 % (2.0-8.0); NEUTROPHILS # 3.6 10^3/uL (1.5-8.5); PLATELET COUNT, AUTOMATED 250 10^3/uL (150-450); RED BLOOD COUNT 4.71 10^6/uL (4.30-6.10); WHITE BLOOD COUNT 6.5 10^3/uL (4.0-10.0)
[2022-08-23 11:27] LABS: HEMOGLOBIN A1c 10.6 % (4.0-6.0)
[2022-08-23 11:46] LABS: ALBUMIN 3.7 G/DL (3.2-5.2); ALKALINE PHOSPHATASE 110 U/L (46-116); ALT/SGPT 18 U/L (7.0-40); AST/SGOT 11 U/L (<34); BILIRUBIN,TOTAL 0.5 MG/DL (0.3-1.2); BLOOD UREA NITROGEN 18 MG/DL (9-23); CALCIUM LEVEL 9.4 MG/DL (8.3-10.6); CARBON DIOXIDE LEVEL 24 MMOL/L (20-31); CHLORIDE LEVEL 102 MMOL/L (98-107); CHOLESTEROL LEVEL 172 MG/DL (<200); CHOLESTEROL RISK RATIO 4.49 (<5); CREATININE FOR GFR 0.78 MG/DL (0.70-1.30); FREE T4 1.36 NG/DL (0.89-1.76); GLOMERULAR FILTRATION RATE > 60.0 (>49); GLUCOSE, FASTING 361 MG/DL (74-106); HDL CHOLESTEROL 38.3 MG/DL (>40); LDL CHOLESTEROL 108.7 MG/DL (<100); NON-HDL-C 134 MG/DL; POTASSIUM SERUM 4.7 MMOL/L (3.5-5.1); SODIUM LEVEL 135 MMOL/L (136-145); THYROID STIMULATING HORMONE 0.742 uIU/ML (0.55-4.78); TOTAL PROTEIN 6.9 G/DL (5.7-8.2); TRIGLYCERIDES LEVEL 125 MG/DL (<150)
== END ==
LOC: M PLALAB 08:30
PROVIDERS: ATTEND Physician Assistant Medical
DX: E11.9 Type 2 diabetes mellitus without complications (principal); I10 Essential (primary) hypertension; F41.1 Generalized anxiety disorder; E78.5 Hyperlipidemia, unspecified; Z12.5 Encounter for screening for malignant neoplasm of prostate
CPT/HCPCS: 36415; 80053; 80061; 83036; 84439; 84443; 85025; G0103

== ENCOUNTER → 2022-10-17 | Outpatient (CLI) | payer OTHER ==
[2022-10-17 13:57] LABS: HEMOGLOBIN A1c 13.6 % (4.0-6.0)
== END ==
LOC: M PLALAB 09:18
PROVIDERS: ATTEND Physician Assistant Medical
DX: E11.9 Type 2 diabetes mellitus without complications (principal)

== ENCOUNTER → 2023-01-08 | Outpatient (CLI) | payer OTHER ==
[2023-01-08 13:38] LABS: HEMOGLOBIN A1c 10.4 % (4.0-6.0)
== END ==
LOC: M PLALAB 10:40
PROVIDERS: ATTEND Physician Assistant Medical
DX: E11.9 Type 2 diabetes mellitus without complications (principal)

== ENCOUNTER → 2023-01-08 | Outpatient (REF) | payer OTHER | LOC: M SFHCPLAZ 10:25 | PROVIDERS: ATTEND Physician Assistant Medical | DX: Z53.9 Procedure and treatment not carried out, unspecified reason (principal) ==

== ENCOUNTER 2023-03-14 07:28 | Day surgery (SDC) | payer OTHER ==
[~2023-03-14] VITALS: Ht 177.8 cm; Wt 92.5 kg
[~2023-03-14 07:28] MED LIST changes: +BSS IRRIG/VANCO(10MG)/TOBRA(5MG)/EPINEPH(1:1000-0.5CC)500ML BAG-ORONLY IR ONE; +CEFUROXIME 1MG/0.1ML INTRACAMERAL INJ As Ordered ONE; +CYCLOPENTOLATE 1% OPHTH SOLN 2ML BTL OD SCH; +INSULANT SC; +LIDOCAINE 1% SDV 5ML VIAL As Ordered ONE; +LIDOCAINE 3.5 % 1ML OPHTH TOPICAL GEL OU ONE; +OFLOXACIN 0.3 % (OCUFLOX) OPTH SOL 5ML OD ONE; +PHENYLEPHRINE 10% OPHTH SOL 5ML OD PRN; +PHENYLEPHRINE 2.5% OPHTH SOL 2ML OD SCH; +TROPICAMIDE 1% OPHTH SOLN 15ML OD SCH
[2023-03-14] MEDS ORDERED: MIDAZOLAM INJ 2MG/2ML VIAL As Ordered ONE ×2 (08:01→09:57)
[2023-03-14] MEDS ORDERED: fentaNYL 100 MCG/2 ML INJECTION As Ordered ONE (08:01)
[2023-03-14] MEDS ORDERED: CARVedilol 6.25 MG TAB PO ONE (08:15)
[2023-03-14] MEDS ORDERED: INSULIN LISPRO (NovoLOG) PER UNIT SC PRN (08:20)
[2023-03-14 10:05] VITALS: BP 144/86; TEMP 97.1; O2SAT 98
== END 2023-03-14 10:24 | disposition home or self-care (01) ==
LOC: M SDC 07:28
PROVIDERS: ATTEND Ophthalmology
DX: H25.11 Age-related nuclear cataract, right eye (principal); I10 Essential (primary) hypertension; E78.5 Hyperlipidemia, unspecified; E11.9 Type 2 diabetes mellitus without complications; Z79.4 Long term (current) use of insulin; Z79.84 Long term (current) use of oral hypoglycemic drugs; I25.10 Atherosclerotic heart disease of native coronary artery without angina pectoris; I25.2 Old myocardial infarction; F41.9 Anxiety disorder, unspecified; Z79.82 Long term (current) use of aspirin; Z79.899 Other long term (current) drug therapy; Z98.61 Coronary angioplasty status; Z79.02 Long term (current) use of antithrombotics/antiplatelets
CPT/HCPCS: 66984; J0697; J2250; J3010; V2632

== ENCOUNTER → 2023-06-22 | Outpatient (CLI) | payer OTHER ==
[~2023-06-22] MED LIST changes: -BSS IRRIG/VANCO(10MG)/TOBRA(5MG)/EPINEPH(1:1000-0.5CC)500ML BAG-ORONLY IR ONE; -CEFUROXIME 1MG/0.1ML INTRACAMERAL INJ As Ordered ONE; -CYCLOPENTOLATE 1% OPHTH SOLN 2ML BTL OD SCH; -LIDOCAINE 1% SDV 5ML VIAL As Ordered ONE; -LIDOCAINE 3.5 % 1ML OPHTH TOPICAL GEL OU ONE; -OFLOXACIN 0.3 % (OCUFLOX) OPTH SOL 5ML OD ONE; -PHENYLEPHRINE 10% OPHTH SOL 5ML OD PRN; -PHENYLEPHRINE 2.5% OPHTH SOL 2ML OD SCH; -TROPICAMIDE 1% OPHTH SOLN 15ML OD SCH
== END ==
LOC: M RAD 11:18
PROVIDERS: ATTEND Podiatrist Foot & Ankle Surgery
DX: I70.201 Unspecified atherosclerosis of native arteries of extremities, right leg (principal)

== ENCOUNTER → 2023-07-05 | Outpatient (CLI) | payer OTHER | LOC: M RAD 08:07 | PROVIDERS: ATTEND Physician Assistant Medical | DX: I71.41 Pararenal abdominal aortic aneurysm, without rupture (principal); I73.9 Peripheral vascular disease, unspecified ==

== ENCOUNTER → 2023-09-04 | Outpatient (CLI) | payer OTHER | LOC: M PLAIMG 15:00 | PROVIDERS: ATTEND Physician Assistant Medical | DX: M25.511 Pain in right shoulder (principal) ==

== ENCOUNTER → 2023-09-06 | Outpatient (REF) | payer OTHER ==
[2023-09-06 13:16] LABS: BASO % 0.4 % (0.0-1.0); EOS # 0.1 10^3/uL (0.0-0.5); EOS % 0.9 % (0.0-3.0); HEMATOCRIT 45.2 % (42.0-52.0); HEMOGLOBIN 15.3 g/dl (13.5-17.5); LYMPH # 2.2 10^3/uL (1.5-5.0); LYMPH % 32.5 % (24.0-44.0); MEAN CORPUSCULAR HEMOGLOBIN 32.1 pg (27.0-33.0); MEAN CORPUSCULAR HGB CONC 33.8 g/dl (32.0-36.5); MONO # 0.4 10^3/uL (0.0-0.8); MONO % 5.3 % (2.0-8.0); NEUTROPHILS # 4.1 10^3/uL (1.5-8.5); NEUTROPHILS % 60.5 % (36.0-66.0); PLATELET COUNT, AUTOMATED 236 10^3/uL (150-450); RED BLOOD COUNT 4.76 10^6/uL (4.30-6.10); WHITE BLOOD COUNT 6.8 10^3/uL (4.0-10.0)
[2023-09-06 13:26] LABS: PARTIAL THROMBOPLASTIN TIME 27.8 SECONDS (24.8-34.2); PROTHROMBIN TIME 12.9 SECONDS (12.5-14.5)
[2023-09-06 13:53] LABS: BLOOD UREA NITROGEN 23 MG/DL (9-23); CALCIUM LEVEL 8.3 MG/DL (8.3-10.6); CARBON DIOXIDE LEVEL 24 MMOL/L (20-31); CHLORIDE LEVEL 104 MMOL/L (98-107); CREATININE FOR GFR 0.65 MG/DL (0.70-1.30); GLOMERULAR FILTRATION RATE > 60.0 (>49); GLUCOSE, FASTING 470 MG/DL (74-106); POTASSIUM SERUM 4.7 MMOL/L (3.5-5.1); SODIUM LEVEL 136 MMOL/L (136-145)
== END ==
LOC: M LABDRWAD 13:04 → M LABDRAWP 13:04
PROVIDERS: ATTEND Physician Assistant
DX: I73.9 Peripheral vascular disease, unspecified (principal)

== ENCOUNTER → 2023-09-27 | Outpatient (CLI) | payer OTHER | LOC: M PLAIMG 06:50 | PROVIDERS: ATTEND Physician Assistant Medical | DX: M12.811 Other specific arthropathies, not elsewhere classified, right shoulder (principal); M25.611 Stiffness of right shoulder, not elsewhere classified ==

== ENCOUNTER 2024-03-18 21:08 | Emergency (ER) | payer OTHER ==
[~2024-03-18] VITALS: Ht 175.3 cm; Wt 77.9 kg
[2024-03-18 21:26] LABS: BASO % 0.5 % (0.0-1.0); EOS # 0.1 10^3/uL (0.0-0.5); EOS % 0.8 % (0.0-3.0); HEMATOCRIT 45.4 % (42.0-52.0); HEMOGLOBIN 16.1 g/dl (13.5-17.5); LYMPH % 31.7 % (24.0-44.0); MEAN CORPUSCULAR HEMOGLOBIN 32.7 pg (27.0-33.0); MEAN CORPUSCULAR HGB CONC 35.5 g/dl (32.0-36.5); MEAN CORPUSCULAR VOLUME 92.3 fl (80.0-96.0); MONO # 0.4 10^3/uL (0.0-0.8); NEUTROPHILS # 3.8 10^3/uL (1.5-8.5); NEUTROPHILS % 60.4 % (36.0-66.0); PLATELET COUNT, AUTOMATED 245 10^3/uL (150-450); RED BLOOD COUNT 4.92 10^6/uL (4.30-6.10); WHITE BLOOD COUNT 6.4 10^3/uL (4.0-10.0)
[2024-03-18 21:38] LABS: INR 1.03; PARTIAL THROMBOPLASTIN TIME 25.5 SECONDS (24.8-34.2); PROTHROMBIN TIME 13.2 SECONDS (12.5-14.5)
[2024-03-18 22:03] LABS: CK-MB VALUE MASS 2.4 NG/ML (<3.6)
[2024-03-18 22:13] LABS: BLOOD UREA NITROGEN 22 MG/DL (9-23); CALCIUM LEVEL 8.8 MG/DL (8.3-10.6); CARBON DIOXIDE LEVEL 25 MMOL/L (20-31); CHLORIDE LEVEL 102 MMOL/L (98-107); CPK CREATINE PHOSPHOKINASE 75 U/L (46-171); CREATININE FOR GFR 0.77 MG/DL (0.70-1.30); GLOMERULAR FILTRATION RATE > 60.0 (>49); GLUCOSE, FASTING 416 MG/DL (74-106); POTASSIUM SERUM 4.5 MMOL/L (3.5-5.1); SODIUM LEVEL 135 MMOL/L (136-145)
[2024-03-18] MEDS ORDERED: NITROGLYCERIN 0.4MG SUBL TABLET SL PRN (22:40)
[2024-03-18] MEDS ORDERED: ISOVUE-370 76% 100ML VIAL As Ordered ONE (22:43)
[2024-03-18] MEDS: ASPIRIN 81MG CHEW TABLET PO ONE (22:59)
[2024-03-19 00:35] LABS: MB/CK RELATIVE INDEX 3.33 (< OR =4)
[2024-03-19] MEDS ORDERED: HEPARIN SOD (PORCINE) 5000UNITS/ML 1ML VIAL/SYRINGE IV PRN (01:55)
[2024-03-19 02:07] VITALS: BP 180/97
[2024-03-19] MEDS: NITROGLYCERIN 2% OINT 1 GM *U/D* PKT TOP ONE (02:07)
[2024-03-19] MEDS: HEPARIN SOD (PORCINE) 5000UNITS/ML 1ML VIAL/SYRINGE IV ONE (02:08)
[2024-03-19] MEDS: HEPARIN DRIP 25,000 UNITS in IV 1 EA IV SCH (02:10)
[2024-03-19] MEDS: MULTIVITAMIN -ADULT INJECTION 10 ML, THIAMINE INJection 100 MG, FOLIC ACID 1 MG in NS 1... IV ONE (03:28)
[2024-03-19 07:35] VITALS: BP 162/94; TEMP 97.7; O2SAT 93
== END 2024-03-19 07:56 | disposition short-term general hospital (02) ==
LOC: M ED 21:08
DX: I20.0 Unstable angina (principal); R79.89 Other specified abnormal findings of blood chemistry; I25.2 Old myocardial infarction; E11.9 Type 2 diabetes mellitus without complications; I10 Essential (primary) hypertension; K21.9 Gastro-esophageal reflux disease without esophagitis; F41.9 Anxiety disorder, unspecified; F10.10 Alcohol abuse, uncomplicated; Z79.1 Long term (current) use of non-steroidal anti-inflammatories (NSAID); Z79.4 Long term (current) use of insulin; Z79.84 Long term (current) use of oral hypoglycemic drugs; Z79.899 Other long term (current) drug therapy
CPT/HCPCS: 71045; 71275; 80048; 82550; 82553; 84484; 85025; 85610; 85730; 93005; 93041; 93970; 94760; 96365; 96366; 96374; 99291; 99292; J3411; Q9967

== ENCOUNTER → 2024-04-02 | Outpatient (REF) | payer OTHER ==
[2024-04-02 14:19] LABS: HEMOGLOBIN A1c 13.3 % (4.0-6.0)
[2024-04-02 14:26] LABS: BASO % 0.5 % (0.0-1.0); EOS # 0.1 10^3/uL (0.0-0.5); EOS % 0.8 % (0.0-3.0); HEMATOCRIT 45.3 % (42.0-52.0); LYMPH # 1.7 10^3/uL (1.5-5.0); LYMPH % 26.1 % (24.0-44.0); MEAN CORPUSCULAR HEMOGLOBIN 32.1 pg (27.0-33.0); MEAN CORPUSCULAR HGB CONC 33.1 g/dl (32.0-36.5); MONO # 0.4 10^3/uL (0.0-0.8); MONO % 6.6 % (2.0-8.0); NEUTROPHILS # 4.2 10^3/uL (1.5-8.5); NEUTROPHILS % 65.4 % (36.0-66.0); PLATELET COUNT, AUTOMATED 230 10^3/uL (150-450); PSA SCREENING 0.31 NG/ML (< 4.00); RED BLOOD COUNT 4.67 10^6/uL (4.30-6.10); WHITE BLOOD COUNT 6.4 10^3/uL (4.0-10.0)
[2024-04-02 14:27] LABS: MALB URINE SIEMENS < 3.0 MG/L; MAU/CREAT RATIO 5.1 MCG/MG (0.0-30.0)
[2024-04-02 14:28] LABS: ALBUMIN 3.3 G/DL (3.2-5.2); ALKALINE PHOSPHATASE 67 U/L (46-116); ALT/SGPT 20 U/L (7.0-40); AST/SGOT 11 U/L (<34); BILIRUBIN,TOTAL 0.3 MG/DL (0.3-1.2); BLOOD UREA NITROGEN 24 MG/DL (9-23); CALCIUM LEVEL 8.9 MG/DL (8.3-10.6); CARBON DIOXIDE LEVEL 28 MMOL/L (20-31); CHLORIDE LEVEL 109 MMOL/L (98-107); CHOLESTEROL LEVEL 85 MG/DL (<200); CHOLESTEROL RISK RATIO 2.66 (<5); CREATININE FOR GFR 0.77 MG/DL (0.70-1.30); GLOMERULAR FILTRATION RATE > 60.0 (>49); GLUCOSE, FASTING 186 MG/DL (74-106); HDL CHOLESTEROL 31.9 MG/DL (>40); LDL CHOLESTEROL 30.1 MG/DL (<100); NON-HDL-C 53.1 MG/DL; POTASSIUM SERUM 4.3 MMOL/L (3.5-5.1); SODIUM LEVEL 143 MMOL/L (136-145); TOTAL PROTEIN 5.9 G/DL (5.7-8.2); TRIGLYCERIDES LEVEL 115 MG/DL (<150)
== END ==
LOC: M SFHCPLAZ 08:14
PROVIDERS: ATTEND Student in an Organized Health Care Education/Training Program
DX: I10 Essential (primary) hypertension (principal); E11.9 Type 2 diabetes mellitus without complications; E78.5 Hyperlipidemia, unspecified; Z12.5 Encounter for screening for malignant neoplasm of prostate
CPT/HCPCS: 80053; 80061; 82043; 83036; 85025; G0103

== ENCOUNTER → 2024-10-28 | Outpatient (CLI) | payer OTHER ==
[2024-10-28 11:48] LABS: BASO % 0.7 % (0.0-1.0); EOS # 0.1 10^3/uL (0.0-0.5); EOS % 0.9 % (0.0-3.0); HEMOGLOBIN 14.3 g/dl (13.5-17.5); LYMPH # 2.3 10^3/uL (1.5-5.0); LYMPH % 40.6 % (24.0-44.0); MEAN CORPUSCULAR HEMOGLOBIN 32.9 pg (27.0-33.0); MEAN CORPUSCULAR VOLUME 96.6 fl (80.0-96.0); MONO # 0.4 10^3/uL (0.0-0.8); MONO % 6.8 % (2.0-8.0); NEUTROPHILS # 2.9 10^3/uL (1.5-8.5); NEUTROPHILS % 50.5 % (36.0-66.0); PLATELET COUNT, AUTOMATED 267 10^3/uL (150-450); RED BLOOD COUNT 4.35 10^6/uL (4.30-6.10); WHITE BLOOD COUNT 5.7 10^3/uL (4.0-10.0)
[2024-10-28 12:13] LABS: PSA SCREENING 0.51 NG/ML (< 4.00)
[2024-10-28 12:16] LABS: FREE T4 1.34 NG/DL (0.89-1.76)
[2024-10-28 12:17] LABS: THYROID STIMULATING HORMONE 1.504 uIU/ML (0.55-4.78)
[2024-10-28 12:20] LABS: ALBUMIN 3.5 G/DL (3.2-5.2); ALKALINE PHOSPHATASE 91 U/L (40-129); ALT/SGPT 15 U/L (7.0-40); AST/SGOT < 8 U/L (<34); BILIRUBIN,TOTAL 0.3 MG/DL (0.3-1.2); BLOOD UREA NITROGEN 16 MG/DL (9-23); CARBON DIOXIDE LEVEL 28 MMOL/L (20-31); CHLORIDE LEVEL 104 MMOL/L (98-107); CHOLESTEROL LEVEL 178 MG/DL (<200); CHOLESTEROL RISK RATIO 3.67 (<5); CREATININE FOR GFR 0.71 MG/DL (0.70-1.30); GLOMERULAR FILTRATION RATE > 60.0 (>49); GLUCOSE, FASTING 226 MG/DL (74-106); HDL CHOLESTEROL 48.4 MG/DL (>40); LDL CHOLESTEROL 83.2 MG/DL (<100); NON-HDL-C 129.6 MG/DL; POTASSIUM SERUM 3.8 MMOL/L (3.5-5.1); SODIUM LEVEL 141 MMOL/L (136-145); TOTAL PROTEIN 6.8 G/DL (5.7-8.2); TRIGLYCERIDES LEVEL 232 MG/DL (<150)
== END ==
LOC: M PLALAB 09:47
PROVIDERS: ATTEND Physician Assistant Medical
DX: M19.011 Primary osteoarthritis, right shoulder (principal)
CPT/HCPCS: 36415; 73030; 80053; 80061; 84439; 84443; 85025; G0103

== ENCOUNTER → 2025-03-11 | Outpatient (CLI) | payer OTHER ==
[2025-03-11 17:49] LABS: APPEARANCE, URINE CLEAR (CLEAR); BACTERIA, URINE AUTO NEGATIVE (NEGATIVE); BILIRUBIN, URINE AUTO NEGATIVE (NEGATIVE); BLOOD, URINE BLOOD NEGATIVE (NEGATIVE); GLUCOSE, URINE (UA) AUTO 3+ mg/dL (NEGATIVE); KETONE, URINE AUTO NEGATIVE (NEGATIVE); LEUKOCYTE ESTERASE, URINE AUTO NEGATIVE (NEGATIVE); NITRITE, URINE AUTO NEGATIVE (NEGATIVE); PROTEIN, URINE AUTO NEGATIVE (NEGATIVE); RBC, URINE AUTO 1 /HPF (0-3); SPECIFIC GRAVITY URINE AUTO 1.017 (1.002-1.035); SQUAMOUS EPITHELIAL CELL UR AU 0 /HPF (0-6); UROBILINOGEN, URINE AUTO 0.2 mg/dL (0.0-2.0); WBC, URINE AUTO 1 /HPF (0-3)
== END ==
LOC: M PLAIMG 09:27
PROVIDERS: ATTEND Physician Assistant Medical
DX: M54.2 Cervicalgia (principal); N32.89 Other specified disorders of bladder; M54.31 Sciatica, right side; M46.92 Unspecified inflammatory spondylopathy, cervical region; M47.9 Spondylosis, unspecified

== ENCOUNTER → 2025-04-09 | Outpatient (CLI) | payer OTHER | LOC: M PLARAD 10:53 | PROVIDERS: ATTEND Physician Assistant Medical | DX: M54.2 Cervicalgia (principal); M47.812 Spondylosis without myelopathy or radiculopathy, cervical region ==

== ENCOUNTER → 2025-06-03 | Outpatient (CLI) | payer OTHER | LOC: M PLAIMG 12:59 | PROVIDERS: ATTEND Physician Assistant Medical | DX: M54.31 Sciatica, right side (principal); M47.816 Spondylosis without myelopathy or radiculopathy, lumbar region ==

== ENCOUNTER → 2025-07-21 | Outpatient (CLI) | payer OTHER ==
[2025-07-21 09:03] LABS: BASO # 0.0 10^3/uL (0.0-0.2); BASO % 0.9 % (0.0-1.0); EOS # 0.1 10^3/uL (0.0-0.5); EOS % 1.5 % (0.0-3.0); LYMPH # 1.5 10^3/uL (1.5-5.0); LYMPH % 32.8 % (24.0-44.0); MONO # 0.3 10^3/uL (0.0-0.8); MONO % 6.7 % (2.0-8.0); NEUTROPHILS # 2.7 10^3/uL (1.5-8.5); NEUTROPHILS % 57.7 % (36.0-66.0); PLATELET COUNT, AUTOMATED 250 10^3/uL (150-450)
[2025-07-21 09:05] LABS: ESTIMATED AVERAGE GLUCOSE 217.0 MG/DL (60-110)
[2025-07-21 09:23] LABS: PSA SCREENING 0.63 NG/ML (< 4.00)
[2025-07-21 09:25] LABS: ALT/SGPT 17 U/L (7.0-40); AST/SGOT 12 U/L (<34); CALCIUM LEVEL 8.6 MG/DL (8.3-10.6); CARBON DIOXIDE LEVEL 27 MMOL/L (20-31); CHLORIDE LEVEL 105 MMOL/L (98-107); CHOLESTEROL LEVEL 194 MG/DL (<200); CHOLESTEROL RISK RATIO 5.24 (<5); CREATININE FOR GFR 0.82 MG/DL (0.70-1.30); GLOMERULAR FILTRATION RATE > 90.0 (>49); LDL CHOLESTEROL 126.8 MG/DL (<100); NON-HDL-C 157.0 MG/DL; POTASSIUM SERUM 4.4 MMOL/L (3.5-5.1); SODIUM LEVEL 140 MMOL/L (136-145); TRIGLYCERIDES LEVEL 151 MG/DL (<150)
[2025-07-21 09:27] LABS: FREE T4 1.31 NG/DL (0.89-1.76)
== END ==
LOC: M RAD 07:52
PROVIDERS: ATTEND Physician Assistant Medical
DX: I65.23 Occlusion and stenosis of bilateral carotid arteries (principal)
CPT/HCPCS: 36415; 80053; 80061; 83036; 84439; 84443; 85025; 93880; G0103